=== PATIENT | female | born 1980 | race African-American/Black ===

== ENCOUNTER → 2017-07-02 | Day surgery (SDC) | payer MEDICAID ==
[~2017-07-02] VITALS: Ht 157.5 cm; Wt 107.5 kg
[~2017-07-02] MED LIST: AMLO10TA80 PO; BENA20TA3 PO; CHOL500010 PO; CITA20TA19 PO; CLIN150C14 PO; EMTR1TAB11 PO; IBUP1TAB73 PO; LIDOCAINE HCL 1% 20ML VIAL (Pyxis) INJ ONE; METF500T4 PO; OMEP20CA10 PO; PRAV40TA58 PO; TRAZ-129 PO
[2017-07-02 11:30] LABS: GLUCOSE CSF 71 mg/dL (41-75)
== END | disposition home or self-care (01) ==
LOC: RADANGIO 08:48
PROVIDERS: ATTEND Psychiatry & Neurology Neurology
DX: G35 Multiple sclerosis (principal)
CPT/HCPCS: 62270; 77003; 82040; 82042; 82784; 82945; 83873; 83916; 84157; 89050; J3490